=== PATIENT | male | born 1935 | race Caucasian/White ===

== ENCOUNTER 2020-09-29 13:26 | Emergency (ER) | payer MEDICARE, BC ==
[2020-09-29 14:13] VITALS: BP 142/56
--- NOTE | 2020-09-29 14:38 | EDM.PDOC ---
ED HPI GENERAL MEDICAL PROBLEM - General Chief Complaint: Genitourinary Problem Stated Complaint: NOT URINATION Time Seen by Provider: 09/29/20 14:09 Source of Information: Reports: Patient History Limitations: Reports: No Limitations - History of Present Illness INITIAL COMMENTS - FREE TEXT/NARRATIVE: 84-year-old male who presents today for urinary retention. Patient states that he had a hernia repair and after the procedure he had minimum urination. He was sent home and told that if he still was not urinated by the next day to return to ED. Patient dates that he woke this morning had a few drops but not much urination. He was in the waiting area and states that he got a decent amount output not his normal stream. He denies any abdominal pain distention nausea vomiting fever chills or any other complaints. Bilateral Abdomen Pain Score (Numeric/FACES): 1 - Related Data Allergies Allergy/AdvReac Type Severity Reaction Status Date / Time Penicillins Allergy Other Verified 10/01/15 11:36 Home Meds: Home Meds . [Unable to Verify Home Med List] 10/01/15 [History] Past Medical History - Past Health History Medical/Surgical History: Denies Medical/Surgical History Cardiovascular History: Reports: High Cholesterol, Hypertension Genitourinary History: Reports: Chronic Renal Insuffiency Musculoskeletal History: Reports: Back Pain, Chronic, Other (See Below) Social & Family History - Family History Family Medical History: No Pertinent Family History - Tobacco Use Tobacco Use Status *Q: Former Tobacco User Used Tobacco, but Quit: Yes Month/Year Tobacco Last Used: 03/2016 - Caffeine Use Caffeine Use: Reports: Coffee - Recreational Drug Use Recreational Drug Use: No ED ROS GENERAL - Review of Systems Review Of Systems: See Below Constitutional: Reports: No Symptoms HEENT: Reports: No Symptoms Respiratory: Reports: No Symptoms Cardiovascular: Reports: No Symptoms Endocrine: Reports: No Symptoms GI/Abdominal: Reports: No Symptoms : Reports: Urinary Retention Musculoskeletal: Reports: No Symptoms Skin: Reports: No Symptoms Neurological: Reports: No Symptoms Psychiatric: Reports: No Symptoms Hematologic/Lymphatic: Reports: No Symptoms Immunologic: Reports: No Symptoms ED EXAM, RENAL/ - Physical Exam Exam: See Below Exam Limited By: No Limitations General Appearance: Alert, WD/WN, No Apparent Distress Respiratory/Chest: No Respiratory Distress, Lungs Clear, Normal Breath Sounds Cardiovascular: Normal Peripheral Pulses, Regular Rate, Rhythm GI/Abdominal: Normal Bowel Sounds, Soft, Non-Tender Neurological: Alert, Oriented, CN II-XII Intact Course - Vital Signs Last Recorded V/S: Last Vital Signs Temp 97.3 F 09/29/20 14:06 Pulse 61 09/29/20 14:06 Resp 18 09/29/20 14:06 BP 142/56 H 09/29/20 14:06 Pulse Ox 96 09/29/20 14:06 - Orders/Labs/Meds Orders: Active Orders 24 hr Category Date Time Status Bladder Scan [RC] ASDIRECTED Care 09/29/20 14:12 Active Communication Order [RC] STAT Care 09/29/20 16:01 Active Labs: Laboratory Tests 09/29/20 09/29/20 09/29/20 Range/Units 14:24 14:24 15:25 WBC 17.68 H (4.0-11.0) K/uL RBC 2.92 L (4.50-5.90) M/uL Hgb 10.2 L (13.0-17.0) g/dL Hct 30.1 L (38.0-50.0) % MCV 103.1 H (80.0-98.0) fL MCH 34.9 H (27.0-32.0) pg MCHC 33.9 (31.0-37.0) g/dL RDW Std Deviation 57.9 (28.0-62.0) fl RDW Coeff of Hien 15 (11.0-15.0) % Plt Count 152 (150-400) K/uL MPV 11.70 (7.40-12.00) fL Neut % (Auto) 87.2 H (48.0-80.0) % Lymph % (Auto) 7.5 L (16.0-40.0) % [place] % (Auto) 5.2 (0.0-15.0) % Eos % (Auto) 0.0 (0.0-7.0) % Baso % (Auto) 0.1 (0.0-1.5) % Neut # (Auto) 15.4 H (1.4-5.7) K/uL Lymph # (Auto) 1.3 (0.6-2.4) K/uL [place] # (Auto) 0.9 H (0.0-0.8) K/uL Eos # (Auto) 0.0 (0.0-0.7) K/uL Baso # (Auto) 0.0 (0.0-0.1) K/uL Nucleated RBC % 0.0 /100WBC Nucleated RBCs # 0 K/uL Sodium 133 L (136-148) mmol/L Potassium 5.4 H (3.5-5.1) mmol/L Chloride 103 (98-107) mmol/L Carbon Dioxide 17.2 L (21.0-32.0) mmol/L BUN 55 H (7.0-18.0) mg/dL Creatinine 4.3 H (0.8-1.3) mg/dL Est Cr Clr Drug Dosing 13.02 mL/min Estimated GFR (MDRD) 13.3 ml/min Glucose 110 H (74-106) mg/dL Calcium 8.5 (8.5-10.1) mg/dL Urine Color YELLOW Urine Appearance CLEAR Urine pH 5.5 (5.0-8.0) Ur Specific [place] 1.025 (1.001-1.035) Urine Protein 100 H (NEGATIVE) mg/dL Urine Glucose (UA) 100 H (NEGATIVE) mg/dL Urine Ketones NEGATIVE (NEGATIVE) mg/dL Urine Occult Blood LARGE H (NEGATIVE) Urine Nitrite NEGATIVE (NEGATIVE) Urine Bilirubin NEGATIVE (NEGATIVE) Urine Urobilinogen 0.2 (<2.0) EU/dL Ur Leukocyte Esterase NEGATIVE (NEGATIVE) Urine RBC 8-12 (0-2/HPF) Urine WBC 4-6 (0-5/HPF) Ur Epithelial Cells RARE (NONE-FEW) Amorphous Sediment FEW (NEGATIVE) Urine Bacteria FEW (NEGATIVE) Urine Mucus FEW (NONE-MOD) - Re-Assessments/Exams Free Text/Narrative Re-Assessment/Exam: 09/29/20 17:02 Patient creatinine is 4.3 we spoke to Gabby and patient creatinine is 4.1 was around his baseline. Patient will be sent home to follow-up with urology as outpatient for Louis care. Departure - Departure Time of Disposition: 17:03 Disposition: Home, Self-Care 01 Condition: Good Clinical Impression: Urinary retention - Discharge Information *PRESCRIPTION DRUG MONITORING PROGRAM REVIEWED*: Not Applicable *COPY OF PRESCRIPTION DRUG MONITORING REPORT IN PATIENT SERENA: Not Applicable Instructions: Indwelling Urinary Catheter Care, Adult, Acute Urinary Retention, Male Referrals: Valdo Watts MD [Primary Care Provider] - Forms: ED Department Discharge Additional Instructions: The following information is given to patients seen in the emergency department who are being discharged to home. This information is to outline your options for follow-up care. We provide all patients seen in our emergency department with a follow-up referral. The need for follow-up, as well as the timing and circumstances, are variable depending upon the specifics of your emergency department visit. If you don't have a primary care physician on staff, we will provide you with a referral. We always advise you to contact your personal physician following an emergency department visit to inform them of the circumstance of the visit and for follow-up with them and/or the need for any referrals to a consulting specialist. The emergency department will also refer you to a specialist when appropriate. This referral assures that you have the opportunity for follow-up care with a specialist. All of these measure are taken in an effort to provide you with optimal care, which includes your follow-up. Under all circumstances we always encourage you to contact your private physician who remains a resource for coordinating your care. When calling for follow-up care, please make the office aware that this follow-up is from your recent emergency room visit. If for any reason you are refused follow-up, please contact the [facility] Emergency Department at and asked to speak to the emergency department charge nurse. Please follow up with your primary care physician. If you do not have a primary care physician, see below: [facility] [address] [place] [id number] [facility] [address] [place] [id number] [facility] UR[facility] CARE [email or web address] You were seen today for urinary retention likely at the your surgery due to any of the paralytics or sedating medication I gave you. This is common. We put a Louis in to help relieve some of your urine. We recommend you follow-up with urology as outpatient surgery that did the surgery. If you have any concerning signs symptoms please return to ED. Sepsis Event Note (ED) - Evaluation Sepsis Screening Result: No Definite Risk - Focused Exam Vital Signs: Vital Signs Temp Pulse Resp BP Pulse Ox 09/29/20 14:06 97.3 F 61 18 142/56 H 96 - My Orders Last 24 Hours: My Active Orders 09/29/20 14:12 Bladder Scan [RC] ASDIRECTED 09/29/20 16:01 Communication Order [RC] STAT - Assessment/Plan Last 24 Hours: My Active Orders 09/29/20 14:12 Bladder Scan [RC] ASDIRECTED 09/29/20 16:01 Communication Order [RC] STAT Plan: Patient is 84-year-old male presents today for urinary retention. Patient states that he was able to urinate a small amount today in the waiting area but states at the procedure yesterday did not have much urination. Patient on exam looks well and comfortable. Will obtain bladder scan patient labs in the needed will place a Louis.
[2020-09-29 14:54] LABS: CARBON DIOXIDE,CO2 17.2 mmol/L (21.0-32.0); POTASSIUM,K 5.4 mmol/L (3.5-5.1)
[2020-09-29 17:27] VITALS: PULSE 58
== END 2020-09-29 17:13 | disposition home or self-care (01) ==
LOC: MW.ED 13:26
DX: R33.9 Retention of urine, unspecified (principal); I12.9 Hypertensive chronic kidney disease with stage 1 through stage 4 chronic kidney disease, or unspecified chronic kidney disease; N18.9 Chronic kidney disease, unspecified; Z87.891 Personal history of nicotine dependence; Z88.0 Allergy status to penicillin
CPT/HCPCS: 36415; 51702; 80048; 81001; 85025; 99283; 99284-25

== ENCOUNTER 2020-12-15 11:16 | Emergency (ER) | payer MEDICARE, BC ==
--- NOTE | 2020-12-15 11:26 | EDM.PDOC ---
ED HPI GENERAL MEDICAL PROBLEM - General Stated Complaint: SEEING BLUE SPOTS/ WEAKNESS/CANTWALK Time Seen by Provider: 12/15/20 11:23 Source of Information: Reports: Patient History Limitations: Reports: No Limitations - History of Present Illness INITIAL COMMENTS - FREE TEXT/NARRATIVE: HISTORY AND PHYSICAL: History of present illness: Patient is an 85-year-old male who presents to the emergency room with complaints of fatigue and weakness. He states he is noted he has becomes breathless with routine ADLs, it has worsened over the past week. He states he typically can walk to the car back without any problem, he now is concerned that his legs will give out due to feeling "so tired". Past medical history of stage IV chronic kidney disease, anemia, BPH, COPD, GERD, hypertension, PAD, lung nodule of the right lower lobe. Patient has been receiving a work-up for the lung nodule which has grown in size, had a biopsy last week and is suspected metastatic cancer. The states they have not received official results but have been referred to an oncologist. Patient denies any fever, chills, headache, change in vision, syncope or near syncope. Denies any chest pain, back pain, shortness of breath or cough. Denies any abdominal pain, nausea, vomiting, diarrhea, constipation or dysuria. Has not noted any blood in urine or stool. Patient has been eating and drinking appropriately. No recent travel or sick contacts. Review of systems: As per history of present illness and below otherwise all systems reviewed and negative. Past medical history: As per history of present illness and as reviewed below otherwise noncontributory. Surgical history: As per history of present illness and as reviewed below otherwise noncontributory. Social history: See social history for further information Family history: As per history of present illness and as reviewed below otherwise noncontributory. Physical exam: General: Well developed and well nourished. Alert and orientated x 3. Nontoxic in appearance and in no acute distress. Vital signs are stable and have been reviewed by me. Nursing notes were reviewed. HEENT: Atraumatic, normocephalic, pupils equal and reactive bilaterally, negative for conjunctival pallor or scleral icterus, mucous membranes moist, TMs normal bilaterally, throat clear, neck supple, nontender, trachea midline. No drooling or trismus noted. No meningeal signs. No hot potato voice noted. Lungs: Diminished to auscultation bilaterally. No wheezes, rales, or rhonchi. Chest nontender. Normal work of breathing, no accessory muscles used. Heart: S1S2, regular rate and rhythm without overt murmur, gallops, or rubs. No JVD. No peripheral edema Abdomen: Soft, nondistended, nontender. Normoactive bowel sounds. Negative for masses or costovertebral tenderness. Pelvis: Stable nontender. Genitourinary/Rectal: This was done with consent and a assembly mechanic at the bedside. Brown stool is noted. Faintly Hemoccult positive on exam. No internal/external hemorrhoids are noted. Tolerated well. Good rectal tone. Skin: Intact, warm, dry. No lesions or rashes noted. Hematologic: No petechiae or purpra. Mucosa appropriate color and normal nail bed color and refill. Extremities: Atraumatic, moves all extremities per self without difficulty or deficits, negative for cords or calf pain. Neurovascular unremarkable. Neuro: Awake, alert, oriented. Cranial nerves II through XII unremarkable. Cerebellum unremarkable. Motor and sensory unremarkable throughout. Exam nonfocal. Psychiatric: Mood and affect are appropriate. Normal thought process. Answering questions appropriately. Please note that the patient was seen and evaluated during the 2019 SARS-CoV-2 novel coronavirus pandemic period. Community viral transmission is ongoing at time of this encounter and the emergency department is operating under pandemic response procedures. 11/26/2020: Echocardiogram was done for a systolic murmur. SEE REPORT. 11/24/2020 Shay Camara (Dr Hahn with Cardiothoracic Service): PET scan - single metabolically active nodule superior segment of the right lower lobe, likely a pulmonary malignancy. Multiple scattered metabolic activity right hilar/mediastinal mildly prominent lymph node possibly metastatic in nature. Axillary and inguinal lymph nodes may be reactive. Multiple metabolically active small upper abdominal and mid to lower retroperitoneal with lymph nodes extending into the pelvis and inguinal regions. Given the widespread nature of the lymph nodes and additional malignancies such as lymphoma could not be externally excluded. Fairly widespread reactive lymphadenopathy as an alternative although a less likely diagnosis. 11/02/2020: Patient's BUN 52 and Creat 3.97. Established with Dr Teran for nephrology. Medical Decision Making: Patient is an 85 year old male who presents to the ED with complaints of fatigue x 1 week. Patient most recently has been referred to oncology in [facility]. He has had a pulmonary nodule they have been monitoring for a year, most recently had a PET scan which showed that it is getting larger and metastasizing. He had a biopsy last week although does not have the results of this. states "they think it could be cancer". Has not started any type of oncology treatments. Patient was a former smoker. Patient's lab today shows a leukocytosis at 13.17, likely from the pneumonia. CXR shows a patchy lateral left base opacity suggesting pneumonia. Mild interstitial fibrosis. Hemoglobin 6.7 (09/29/20: 10.2) with hematocrit 18.7 (09/29/20: 30.1) and platelet 59. BUN 112 and creatinine 6.7. Patient does have stage IV CKD, has had emergent dialysis but is not on dialysis routinely at this point. He states they have been talking about putting him on dialysis but have not fully committed. Troponin is elevated at 0.088. Patient has not had any chest pain. His EKG shows no ST elevation. Feel this is demand ischemia. Due to his blood loss I am not going to start heparin at this time, but will consult cardiology/hospitalist for further recommendations. 1400: [facility] is at full capacity, unable to take patient. 1405: [facility] and [facility] are full, no beds available. 1410: [facility] took patient information; will check on bed status and return call. 1415: [facility] is full, no beds available. 1418: [facility] was called to confirm there is no placement in the [facility]. They confirmed that the [facility], including [facility] is at capacity. 1425: [facility] took patient information; will check on bed status and return ca ll. 1450: [facility] returned phone call. Dr Cole accepted this patient. Patient will be evaluated through the emergency room and when bed becomes available and then be fully admitted. Patient is currently receiving blood products. Vital signs are stable. I did talk with the patient and his about transfer, they are agreeable. Ground crew will take several hours before they are available to transport this patient to [facility]. The ground transport itself is approximately 5-1/2 to 6 hours. I feel it is reasonable to transport this patient via flight crew due to low hemiglobin and kidney function. Ground will delay care. Diagnostics: CBC, CMP, Troponin, EKG, CXR, COVID Therapeutics: IV fluids, blood products Impression: Pneumonia Anemia Weakness Elevated Troponin (likely secondary to demand) Renal Insufficiency Plan: Transfer to [facility] via flight crew. Definitive disposition and diagnosis as appropriate pending reevaluation and review of above. legs Pain Score (Numeric/FACES): 3 - Related Data Allergies Allergy/AdvReac Type Severity Reaction Status Date / Time Penicillins Allergy Other Verified 10/01/15 11:36 Home Meds: Home Meds . [Unable to Verify Home Med List] 10/01/15 [History] Past Medical History - Past Health History Medical/Surgical History: Denies Medical/Surgical History Cardiovascular History: Reports: High Cholesterol, Hypertension Genitourinary History: Reports: Chronic Renal Insuffiency Musculoskeletal History: Reports: Back Pain, Chronic, Other (See Below) Social & Family History - Family History Family Medical History: No Pertinent Family History - Caffeine Use Caffeine Use: Reports: Coffee ED ROS GENERAL - Review of Systems Review Of Systems: Comprehensive ROS is negative, except as noted in HPI. ED EXAM, GENERAL - Physical Exam Exam: See Below (See dication) Course - Vital Signs Last Recorded V/S: Last Vital Signs Temp 97.1 F 12/15/20 12:14 Pulse 62 12/15/20 15:08 Resp 18 12/15/20 15:08 BP 132/40 L 12/15/20 15:08 Pulse Ox 94 L 12/15/20 15:08 - Orders/Labs/Meds Orders: Active Orders 24 hr Category Date Time Status Verify Patient Consent Obtain [RC] ASDIRECTED Care 12/15/20 13:30 Active CULTURE URINE [MREF] Stat Lab 12/15/20 12:36 Received RED BLOOD CELLS LP [BBK] Stat Lab 12/15/20 13:33 Results TYPE AND SCREEN [BBK] Stat Lab 12/15/20 13:33 Results Azithromycin [Zithromax] 500 mg Med 12/15/20 14:00 Active Sodium Chloride 0.9% [Normal Saline (AdvBag)] 250 ml IV ONETIME Transfuse Red Blood Cells [COMM] Stat Oth 12/15/20 13:29 Ordered Medication Orders Azithromycin 500 mg/ Sodium (Chloride) 250 mls @ 250 mls/hr IV ONETIME EMILI Last Admin: 12/15/20 15:12 Dose: 250 mls/hr Documented by: [email or web address] Labs: Laboratory Tests 12/15/20 12/15/20 12/15/20 Range/Units 12:36 12:40 12:55 WBC 13.12 H (4.0-11.0) K/uL RBC 1.97 L (4.50-5.90) M/uL Hgb 6.7 L (13.0-17.0) g/dL Hct 18.7 L (38.0-50.0) % MCV 94.9 (80.0-98.0) fL MCH 34.0 H (27.0-32.0) pg MCHC 35.8 (31.0-37.0) g/dL RDW Std Deviation 72.6 H (28.0-62.0) fl RDW Coeff of Hien 22 H (11.0-15.0) % Plt Count 59 L (150-400) K/uL Add Manual Diff YES Neutrophils % (Manual) 60 (48.0-80.0) % Band Neutrophils % 2 % Lymphocytes % (Manual) 29 (16.0-40.0) % Monocytes % (Manual) 8 (0.0-15.0) % Eosinophils % (Manual) 1 (0.0-7.0) % Nucleated RBC % 0.0 /100WBC Absolute Seg Neuts 7.9 H (1.4-5.7) Band Neutrophils # 0.3 Lymphocytes # (Manual) 3.8 H (0.6-2.4) Monocytes # (Manual) 1.0 H (0.0-0.8) Eosinophils # (Manual) 0.1 (0.0-0.7) Nucleated RBCs # 0 K/uL Platelet Estimate DECREASED Target Cells 2+ MODERATE Sodium (136-148) mmol/L Potassium (3.5-5.1) mmol/L Chloride (98-107) mmol/L Carbon Dioxide (21.0-32.0) mmol/L BUN (7.0-18.0) mg/dL Creatinine (0.8-1.3) mg/dL Est Cr Clr Drug Dosing Estimated GFR (MDRD) ml/min Glucose (74-106) mg/dL Calcium (8.5-10.1) mg/dL Total Bilirubin (0.2-1.0) mg/dL AST (15-37) IU/L ALT (14-63) IU/L Alkaline Phosphatase (46-116) U/L Troponin I (0.000-0.056) ng/mL Total Protein (6.4-8.2) g/dL Albumin (3.4-5.0) g/dL Globulin (2.6-4.0) g/dL Albumin/Globulin Ratio (0.9-1.6) Urine Color YELLOW Urine Appearance CLEAR Urine pH 5.5 (5.0-8.0) Ur Specific [place] >= 1.030 (1.001-1.035) Urine Protein 100 H (NEGATIVE) mg/dL Urine Glucose (UA) NEGATIVE (NEGATIVE) mg/dL Urine Ketones NEGATIVE (NEGATIVE) mg/dL Urine Occult Blood TRACE-INTACT H (NEGATIVE) Urine Nitrite NEGATIVE (NEGATIVE) Urine Bilirubin NEGATIVE (NEGATIVE) Urine Urobilinogen 0.2 (<2.0) EU/dL Ur Leukocyte Esterase TRACE H (NEGATIVE) Urine RBC 0-2 (0-2/HPF) Urine WBC 1-3 (0-5/HPF) Ur Epithelial Cells OCCASIONAL (NONE-FEW) Urine Bacteria FEW (NEGATIVE) SARS-CoV-2 RNA (ABDI) NEGATIVE (NEGATIVE) Blood Type Antibody Screen Crossmatch 12/15/20 12/15/20 Range/Units 12:55 13:33 WBC (4.0-11.0) K/uL RBC (4.50-5.90) M/uL Hgb (13.0-17.0) g/dL Hct (38.0-50.0) % MCV (80.0-98.0) fL MCH (27.0-32.0) pg MCHC (31.0-37.0) g/dL RDW Std Deviation (28.0-62.0) fl RDW Coeff of Hien (11.0-15.0) % Plt Count (150-400) K/uL Add Manual Diff Neutrophils % (Manual) (48.0-80.0) % Band Neutrophils % % Lymphocytes % (Manual) (16.0-40.0) % Monocytes % (Manual) (0.0-15.0) % Eosinophils % (Manual) (0.0-7.0) % Nucleated RBC % /100WBC Absolute Seg Neuts (1.4-5.7) Band Neutrophils # Lymphocytes # (Manual) (0.6-2.4) Monocytes # (Manual) (0.0-0.8) Eosinophils # (Manual) (0.0-0.7) Nucleated RBCs # K/uL Platelet Estimate Target Cells Sodium 140 (136-148) mmol/L Potassium 4.7 (3.5-5.1) mmol/L Chloride 107 (98-107) mmol/L Carbon Dioxide 15.4 L (21.0-32.0) mmol/L BUN 112 H (7.0-18.0) mg/dL Creatinine 6.7 H (0.8-1.3) mg/dL Est Cr Clr Drug Dosing TNP Estimated GFR (MDRD) 7.9 ml/min Glucose 106 (74-106) mg/dL Calcium 9.1 (8.5-10.1) mg/dL Total Bilirubin 1.5 H (0.2-1.0) mg/dL AST 45 H (15-37) IU/L ALT 38 (14-63) IU/L Alkaline Phosphatase 127 H (46-116) U/L Troponin I 0.088 H* (0.000-0.056) ng/mL Total Protein 5.6 L (6.4-8.2) g/dL Albumin 1.9 L (3.4-5.0) g/dL Globulin 3.7 (2.6-4.0) g/dL Albumin/Globulin Ratio 0.5 L (0.9-1.6) Urine Color Urine Appearance Urine pH (5.0-8.0) Ur Specific [place] (1.001-1.035) Urine Protein (NEGATIVE) mg/dL Urine Glucose (UA) (NEGATIVE) mg/dL Urine Ketones (NEGATIVE) mg/dL Urine Occult Blood (NEGATIVE) Urine Nitrite (NEGATIVE) Urine Bilirubin (NEGATIVE) Urine Urobilinogen (<2.0) EU/dL Ur Leukocyte Esterase (NEGATIVE) Urine RBC (0-2/HPF) Urine WBC (0-5/HPF) Ur Epithelial Cells (NONE-FEW) Urine Bacteria (NEGATIVE) SARS-CoV-2 RNA (ABDI) (NEGATIVE) Blood Type A POSITIVE Antibody Screen NEGATIVE Crossmatch See Detail Meds: Medications Generic Name Dose Route Start Last Admin Trade Name Rosario PRN Reason Stop Dose Admin Azithromycin 500 mg/ Sodium 250 mls @ 250 mls/hr 12/15/20 14:00 12/15/20 15:12 Chloride IV 250 mls/hr ONETIME EMILI Administration Discontinued Medications Generic Name Dose Route Start Last Admin Trade Name Rosario PRN Reason Stop Dose Admin Sodium Chloride 1,000 mls @ 999 mls/hr 12/15/20 12:20 12/15/20 12:53 Normal Saline IV 12/15/20 13:20 125 mls/hr STAT ONE Administration Departure - Departure Time of Disposition: 16:02 Disposition: DC/Tfer to [facility] 02 Clinical Impression: Pneumonia, Anemia, Elevated troponin, Pulmonary nodule, Renal insufficiency, Weakness - Discharge Information Referrals: Valdo Watts MD [Primary Care Provider] - Sepsis Event Note (ED) - Focused Exam Vital Signs: Vital Signs Temp Pulse Resp BP Pulse Ox 12/15/20 15:08 62 18 132/40 L 94 L 12/15/20 13:30 61 18 133/67 92 L 12/15/20 12:14 97.1 F 74 18 127/42 L 95 - My Orders Last 24 Hours: My Active Orders 12/15/20 12:36 CULTURE URINE [MREF] Stat 12/15/20 13:29 Transfuse Red Blood Cells [COMM] Stat 12/15/20 13:30 Verify Patient Consent Obtain [RC] ASDIRECTED 12/15/20 13:33 RED BLOOD CELLS LP [BBK] Stat TYPE AND SCREEN [BBK] Stat 12/15/20 14:00 Azithromycin [Zithromax] 500 mg Sodium Chloride 0.9% [Normal Saline (AdvBag)] 250 ml IV ONETIME - Assessment/Plan Last 24 Hours: My Active Orders 12/15/20 12:36 CULTURE URINE [MREF] Stat 12/15/20 13:29 Transfuse Red Blood Cells [COMM] Stat 12/15/20 13:30 Verify Patient Consent Obtain [RC] ASDIRECTED 12/15/20 13:33 RED BLOOD CELLS LP [BBK] Stat TYPE AND SCREEN [BBK] Stat 12/15/20 14:00 Azithromycin [Zithromax] 500 mg Sodium Chloride 0.9% [Normal Saline (AdvBag)] 250 ml IV ONETIME
[2020-12-15] MEDS ORDERED: Sodium Chloride 0.9% 1,000 ML IV ONE (12:20)
--- NOTE | 2020-12-15 12:55 | CR ---
INDICATION: Weakness. TECHNIQUE: Upright portable AP image of the chest. COMPARISON: PET-CT of 11/24/2020. FINDINGS: Patchy opacity in the lateral left base suggesting pneumonia. Reticular opacity in the mid to lower lungs due to interstitial fibrosis, as seen on the previous CT. No pleural effusion. Heart size and pulmonary vasculature within normal limits. No significant bony abnormality. IMPRESSION: 1. Patchy lateral left base opacity suggesting pneumonia. 2. Mild interstitial fibrosis. Dictated by Logan Almendarez MD @ 12/15/2020 12:53:32 PM (Electronically Signed)
--- NOTE | 2020-12-15 13:31 | PCM.EKG ---
#1 Interpretation EKG Date: 12/15/20 Time: 12:18 Rhythm: NSR Rate (Beats/Min): 61 [place]: Normal P-Wave: Present QRS: Normal ST-T: Normal QT: Normal CT/PQ Interval: 203 EKG Interpretation Comments: no ischemic changes
[2020-12-15 13:40] LABS: BLOOD UREA NITROGEN,BUN 112 mg/dL (7.0-18.0); CARBON DIOXIDE,CO2 15.4 mmol/L (21.0-32.0); CHLORIDE,CL 107 mmol/L (98-107); GLUCOSE RANDOM 106 mg/dL (74-106); POTASSIUM,K 4.7 mmol/L (3.5-5.1); SODIUM,NA 140 mmol/L (136-148)
[2020-12-15] MEDS ORDERED: Azithromycin 500 MG in Sodium Chloride 0.9% 250 ML IV SCH (14:00)
[2020-12-15 16:24] VITALS: BP 117/56; PULSE 68
== END 2020-12-15 16:57 ==
LOC: MW.ED 11:16
DX: J18.9 Pneumonia, unspecified organism (principal); R79.89 Other specified abnormal findings of blood chemistry; R91.1 Solitary pulmonary nodule; I12.9 Hypertensive chronic kidney disease with stage 1 through stage 4 chronic kidney disease, or unspecified chronic kidney disease; N18.4 Chronic kidney disease, stage 4 (severe); D63.1 Anemia in chronic kidney disease; J44.9 Chronic obstructive pulmonary disease, unspecified; Z88.0 Allergy status to penicillin; Z20.822 Contact with and (suspected) exposure to COVID-19
CPT/HCPCS: 36415; 36430; 71045; 80053; 81001; 84484; 85025; 86850; 86900; 86901; 86920; 86921; 86922; 87086; 93005; 96365; 99285; J0456; J7030; J7050; P9016; U0002